=== PATIENT | male | born 1980 | race Caucasian/White ===

== ENCOUNTER 2018-09-13 19:19 | Emergency (ER) | payer OTHER ==
[~2018-09-13] VITALS: Ht 182.9 cm; Wt 79.4 kg
[2018-09-13 21:59] LABS: Source, Urine Clean Catch
[2018-09-13 22:03] LABS: Bilirubin, Urine Neg (Neg); Blood, Urine Neg (Neg); Glucose Qualitative, Urine Neg (Neg); Ketones, Urine Neg (Neg); Leukocyte Esterase, Urine Neg (Neg); Nitrite, Urine Neg (Neg); Protein, Urine Neg (Neg); Urobilinogen, Urine NORM (Normal)
[2018-09-13 22:05] LABS: BASOPHILS ABSOLUTE AUTO 0.04 K/mm3 (0.00-0.23); BASOPHILS PERCENT AUTO 1 % (0-2); EOSINOPHILS PERCENT AUTO 1 % (0-6); Hematocrit 43.2 % (37.0-53.0); IMMATURE GRAN ABSOLUTE AUTO 0.02 K/mm3 (0.00-0.10); IMMATURE GRAN PERCENT AUTO 0 % (0-1); LYMPHOCYTES ABSOLUTE AUTO 2.49 K/mm3 (0.84-5.20); LYMPHOCYTES PERCENT AUTO 36 % (21-46); MONOCYTES ABSOLUTE AUTO 0.71 K/mm3 (0.16-1.47); MONOCYTES PERCENT AUTO 10 % (4-13); Mean Corpuscular HGB 31.1 pg (26.0-34.0); Mean Corpuscular HGB Conc 34.7 g/dL (31.5-36.5); Mean Corpuscular Volume 90 fL (80-100); Mean Platelet Volume 11.8 fL (9.1-12.4); NEUTROPHILS ABSOLUTE AUTO 3.66 K/mm3 (1.96-9.15); NEUTROPHILS PERCENT AUTO 52 % (41-73); Platelet Count 161 K/mm3 (150-400); RDW Coefficient Variation 11.6 % (11.7-14.2); RDW Standard Deviation 37.9 fL (35.1-46.3); Red Blood Cell Count 4.82 M/mm3 (4.30-5.90); White Blood Cell Count 7.02 K/mm3 (4.00-11.30)
[2018-09-13 22:14] LABS: Appearance, Urine Clear (Clear); Color, Urine Yellow (P-Yellow)
[2018-09-13 22:19] LABS: Anion Gap 3 mmol/L (6-16); Blood Urea Nitrogen 24 mg/dL (8-24); Bun/Creatinine Ratio 26.7 (12.0-20.0); CO2, Blood 28 mmol/L (21-32); Calcium, Blood 9.1 mg/dL (8.5-10.1); Chloride, Blood 107 mmol/L (98-108); Glomerular Filtration Rate >60 (60-); Glucose, Blood 84 mg/dL (70-99); Potassium, Blood 3.9 mmol/L (3.5-5.5); Sodium, Blood 138 mmol/L (136-145)
== END 2018-09-13 22:47 | disposition home or self-care (01) ==
LOC: ER 19:19
PROVIDERS: Emergency Medicine
DX: K40.90 Unilateral inguinal hernia, without obstruction or gangrene, not specified as recurrent (principal)
CPT/HCPCS: 36415; 76857; 80048; 81003; 85025; 99284-25

== ENCOUNTER 2020-06-03 18:51 | Emergency (ER) | payer OTHER ==
[~2020-06-03] VITALS: Ht 182.9 cm; Wt 75.8 kg
== END 2020-06-03 20:59 | disposition home or self-care (01) ==
LOC: ER 18:51
DX: S76.111A Strain of right quadriceps muscle, fascia and tendon, initial encounter (principal); W01.0XXA Fall on same level from slipping, tripping and stumbling without subsequent striking against object, initial encounter
CPT/HCPCS: 76882; 99283-25

== ENCOUNTER 2021-08-11 21:57 | Emergency (ER) | payer OTHER ==
[~2021-08-11] VITALS: Ht 182.9 cm; Wt 81.7 kg
[2021-08-11] MEDS ORDERED: Amitriptyline H10 MG PO (23:56)
[2021-08-12] MEDS ORDERED: CYCL10 PO (00:25)
== END 2021-08-12 00:45 | disposition home or self-care (01) ==
LOC: ER 21:57
DX: M54.50 Low back pain, unspecified (principal); Z79.899 Other long term (current) drug therapy
CPT/HCPCS: 96372; 99283-25; A9270; J1885

== ENCOUNTER 2021-09-21 09:41 | Day surgery (SDC) | payer OTHER ==
[~2021-09-21] VITALS: Ht 182.9 cm; Wt 77.8 kg
[~2021-09-21 09:41] MED LIST: Amitriptyline H10 MG PO; CYCL10 PO
--- NOTE | 2021-09-21 10:59 | NUR ---
09/21/21 1059 Klaus Cruz BUPIVACAINE 0.5% 50 MLS MIXED & VERIFIED IN OR WITH EPI 0.25 ML. BUPIVACAINE 0.5% 1:200,000 MIXED 1:1 W/ LIDOCAINE 1% FOR INJECTION AT OPSITE BY DR STARK. 10 MLS INJECTED.
== END 2021-09-21 12:04 | disposition home or self-care (01) ==
LOC: ORSCSDS 09:41
PROVIDERS: Orthopaedic Surgery
PROC: 0LB80ZZ Excision of Left Hand Tendon, Open Approach (ICD-10-PCS; principal; 2021-09-21 11:15)
DX: M67.442 Ganglion, left hand (principal); Z79.899 Other long term (current) drug therapy
CPT/HCPCS: 88304; J0690; J2250; J2704; J3010; J7120

== ENCOUNTER 2022-03-06 08:08 | Emergency (ER) | payer OTHER ==
[~2022-03-06] VITALS: Ht 182.9 cm; Wt 79.4 kg
[2022-03-06] MEDS ORDERED: Robaxin750 MG PO (10:17)
== END 2022-03-06 10:26 | disposition home or self-care (01) ==
LOC: ER 08:08
DX: M54.50 Low back pain, unspecified (principal); M25.551 Pain in right hip
CPT/HCPCS: A9270; J1885